=== PATIENT | female | born 1950 | race Caucasian/White ===

== ENCOUNTER → 2016-09-09 | Outpatient (CLI) | payer OTHER, BC | LOC: BMCIMAGING 07:58 | PROVIDERS: ATTEND Physician Assistant | DX: Z12.31 Encounter for screening mammogram for malignant neoplasm of breast (principal) | CPT/HCPCS: G0202 ==

== ENCOUNTER → 2016-09-23 | Outpatient (CLI) | payer OTHER, BC | LOC: BMCIMAGING 13:48 | PROVIDERS: ATTEND Physician Assistant | DX: Z13.820 Encounter for screening for osteoporosis (principal); M85.80 Other specified disorders of bone density and structure, unspecified site ==

== ENCOUNTER → 2016-11-21 | Outpatient (CLI) | payer OTHER, BC | LOC: BMCIMAGING 14:35 | PROVIDERS: ATTEND Physician Assistant | DX: M25.551 Pain in right hip (principal); M21.70 Unequal limb length (acquired), unspecified site ==

== ENCOUNTER → 2017-09-15 | Outpatient (CLI) | payer OTHER, BC | LOC: BMCIMAGING 09:03 | PROVIDERS: ATTEND Physician Assistant | DX: Z12.31 Encounter for screening mammogram for malignant neoplasm of breast (principal) ==